=== PATIENT | female | born 1955 | race Caucasian/White ===

== ENCOUNTER 2021-10-13 09:35 | Outpatient (CLI) | payer OTHER ==
[2021-10-13 13:05] LABS: Chol/HDL Ratio 5.04 %
== END 2021-10-13 09:36 | disposition home or self-care (01) ==
LOC: LABHHL 09:35
PROVIDERS: ATTEND Internal Medicine
DX: R73.03 Prediabetes (principal); E78.5 Hyperlipidemia, unspecified
CPT/HCPCS: 36415; 80061; 83036